=== PATIENT | female | born 1970 | race Two or more races ===

== ENCOUNTER 2023-03-26 02:56 | Emergency (ER) | payer OTHER ==
[~2023-03-26] VITALS: Ht 160 cm; Wt 68.2 kg
[2023-03-26 03:15] VITALS: BP 128/61
== END 2023-03-26 03:23 | disposition left against medical advice (07) ==
LOC: ER 02:56
DX: H57.89 Other specified disorders of eye and adnexa (principal); Z53.21 Procedure and treatment not carried out due to patient leaving prior to being seen by health care provider